=== PATIENT | female | born 1945 | race Caucasian/White ===

== ENCOUNTER 2018-03-10 10:57 | Emergency (ER) | payer MEDICARE, OTHER ==
[~2018-03-10] VITALS: Ht 160 cm; Wt 77.1 kg
[~2018-03-10 10:57] MED LIST: ALBU90OI INH; ALPR.25 PO; CARV3.125 PO; CARV6.25 PO; CHOL10002 PO; ESOM20 PO; ESTR2 PO; ESTRADIOL; LISI20 PO; LISINOPRIL; METPRE4DP PO; Norco 5-325 Ta1 EACH PO; SPACE CHAMBER1 EACH MC; TRAM50 PO; TRAMADOL; Vibramycin100 MG PO
[2018-03-10] MEDS ORDERED: LISI20 PO (11:26)
[2018-03-10] MEDS ORDERED: CARV6.25 PO (11:26)
[2018-03-10] MEDS ORDERED: ALPR.25 PO (11:27)
[2018-03-10] MEDS ORDERED: ESOM20 PO (11:27)
[2018-03-10] MEDS ORDERED: TRAM50 PO (11:27)
[2018-03-10] MEDS ORDERED: CHOL10002 PO (11:28)
[2018-03-10] MEDS ORDERED: ESTR2 PO (11:28)
[2018-03-10 12:25] LABS: BASOPHILS ABSOLUTE AUTO 0.06 K/mm3 (0.00-0.23); BASOPHILS PERCENT AUTO 1 % (0-2); EOSINOPHILS ABSOLUTE AUTO 0.15 K/mm3 (0.00-0.68); EOSINOPHILS PERCENT AUTO 2 % (0-6); Hematocrit 42.6 % (33.0-51.0); Hemoglobin 14.2 g/dL (11.5-16.0); IMMATURE GRAN ABSOLUTE AUTO 0.03 K/mm3 (0.00-0.10); IMMATURE GRAN PERCENT AUTO 1 % (0-1); LYMPHOCYTES PERCENT AUTO 28 % (21-46); MONOCYTES ABSOLUTE AUTO 0.55 K/mm3 (0.16-1.47); MONOCYTES PERCENT AUTO 9 % (4-13); Mean Corpuscular HGB 29.5 pg (26.0-34.0); Mean Corpuscular HGB Conc 33.3 g/dL (31.5-36.5); Mean Corpuscular Volume 89 fL (80-100); Mean Platelet Volume 8.9 fL (9.1-12.4); NEUTROPHILS ABSOLUTE AUTO 3.86 K/mm3 (1.96-9.15); NEUTROPHILS PERCENT AUTO 60 % (41-73); Platelet Count 249 K/mm3 (150-400); RDW Coefficient Variation 12.8 % (11.7-14.2); RDW Standard Deviation 41.5 fL (35.1-46.3); Red Blood Cell Count 4.81 M/mm3 (3.80-5.20); White Blood Cell Count 6.45 K/mm3 (4.00-11.30)
[2018-03-10 12:34] LABS: Alanine Aminotransfer (ALT/SGP 23 U/L (12-78); Albumin, Blood 3.6 g/dL (3.4-5.0); Albumin/Globulin Ratio 0.8 (0.8-1.8); Alk Phos 82 U/L (50-136); Anion Gap 6 mmol/L (6-16); Aspartate Aminotrans (AST/SGOT 16 U/L (12-37); Bilirubin, Total 0.3 mg/dL (0.1-1.0); Blood Urea Nitrogen 15 mg/dL (8-24); Bun/Creatinine Ratio 20.9 (12.0-20.0); CO2, Blood 28 mmol/L (21-32); Calcium, Blood 8.9 mg/dL (8.5-10.1); Chloride, Blood 106 mmol/L (98-108); Creatinine, Blood 0.72 mg/dL (0.40-1.00); Globulin, Blood 4.4 g/dL (2.2-4.0); Glomerular Filtration Rate >60 (60-); Glucose, Blood 86 mg/dL (70-99); Magnesium, Blood 2.1 mg/dL (1.6-2.4); Potassium, Blood 3.9 mmol/L (3.5-5.5); Sodium, Blood 140 mmol/L (136-145); Troponin I <0.015 ng/mL (0.000-0.040)
== END 2018-03-10 13:56 | disposition home or self-care (01) ==
LOC: ER 10:57
PROVIDERS: Emergency Medicine
DX: R00.2 Palpitations (principal); I10 Essential (primary) hypertension; Z87.891 Personal history of nicotine dependence; Z88.0 Allergy status to penicillin; Z88.2 Allergy status to sulfonamides; Z88.8 Allergy status to other drugs, medicaments and biological substances; Z79.899 Other long term (current) drug therapy
CPT/HCPCS: 36415; 80053; 83735; 84443; 84484; 85025; 93005; 93010; 99284

== ENCOUNTER 2018-04-13 08:45 | Emergency (ER) | payer MEDICARE, OTHER ==
[~2018-04-13] VITALS: Ht 160 cm; Wt 74.8 kg
[2018-04-13 10:26] LABS: BASOPHILS ABSOLUTE AUTO 0.03 K/mm3 (0.00-0.23); BASOPHILS PERCENT AUTO 1 % (0-2); EOSINOPHILS ABSOLUTE AUTO 0.09 K/mm3 (0.00-0.68); EOSINOPHILS PERCENT AUTO 1 % (0-6); Hematocrit 42.8 % (33.0-51.0); Hemoglobin 14.3 g/dL (11.5-16.0); IMMATURE GRAN ABSOLUTE AUTO 0.06 K/mm3 (0.00-0.10); IMMATURE GRAN PERCENT AUTO 1 % (0-1); LYMPHOCYTES ABSOLUTE AUTO 1.76 K/mm3 (0.84-5.20); LYMPHOCYTES PERCENT AUTO 28 % (21-46); MONOCYTES PERCENT AUTO 8 % (4-13); Mean Corpuscular HGB 29.1 pg (26.0-34.0); Mean Corpuscular HGB Conc 33.4 g/dL (31.5-36.5); Mean Corpuscular Volume 87 fL (80-100); Mean Platelet Volume 8.9 fL (9.1-12.4); NEUTROPHILS ABSOLUTE AUTO 3.78 K/mm3 (1.96-9.15); NEUTROPHILS PERCENT AUTO 61 % (41-73); Platelet Count 261 K/mm3 (150-400); RDW Coefficient Variation 12.8 % (11.7-14.2); RDW Standard Deviation 40.6 fL (35.1-46.3); Red Blood Cell Count 4.91 M/mm3 (3.80-5.20); White Blood Cell Count 6.22 K/mm3 (4.00-11.30)
[2018-04-13 10:34] LABS: Anion Gap 9 mmol/L (6-16); Blood Urea Nitrogen 21 mg/dL (8-24); Bun/Creatinine Ratio 28.1 (12.0-20.0); CO2, Blood 23 mmol/L (21-32); Calcium, Blood 8.6 mg/dL (8.5-10.1); Chloride, Blood 109 mmol/L (98-108); Creatinine, Blood 0.75 mg/dL (0.40-1.00); Glomerular Filtration Rate >60 (60-); Glucose, Blood 102 mg/dL (70-99); Magnesium, Blood 2.1 mg/dL (1.6-2.4); Potassium, Blood 4.1 mmol/L (3.5-5.5); Sodium, Blood 141 mmol/L (136-145)
== END 2018-04-13 12:45 | disposition home or self-care (01) ==
LOC: ER 08:45
PROVIDERS: Emergency Medicine
DX: I48.0 Paroxysmal atrial fibrillation (principal); I10 Essential (primary) hypertension; Z88.0 Allergy status to penicillin; Z88.2 Allergy status to sulfonamides; Z88.8 Allergy status to other drugs, medicaments and biological substances; Z79.899 Other long term (current) drug therapy; Z87.891 Personal history of nicotine dependence
CPT/HCPCS: 36415; 71046; 80048; 83735; 85025; 93005; 93010; 96361; 96374; 99283; J3490; J7030

== ENCOUNTER 2019-08-15 08:09 | Day surgery (SDC) | payer MEDICARE, OTHER ==
[~2019-08-15 08:09] MED LIST changes: +Aspir 8181 MG; +CARV3.125; +DICLO GEL 1%-X1 EACH; +Estradiol0.5 MG PO; +LISI5 PO; +Nexium40 MG; +Zantac150 MG
[2019-09-06] MEDS ORDERED: AMLO10 PO (13:05)
[2019-09-06] MEDS ORDERED: BUPR100ER PO (13:06)
[2019-09-06] MEDS ORDERED: THERA-D2000 UNIT PO (13:07)
[2019-09-06] MEDS ORDERED: Advil Migraine200 MG PO (13:09)
[2019-09-06] MEDS ORDERED: [UNRECOGNIZED DRUG - OTHER] PO (13:12)
[2019-09-06] MEDS ORDERED: OMEGA XL PO (13:13)
[2019-09-06] MEDS ORDERED: Hydrocodone-Ap1 EA23 PO (13:15)
== END 2019-08-15 22:59 | disposition home or self-care (01) ==
LOC: MOI US 08:09
DX: D24.2 Benign neoplasm of left breast (principal)
CPT/HCPCS: 19083; 77065; 88305; 88342; A4648

== ENCOUNTER 2019-09-12 07:10 | Day surgery (SDC) | payer MEDICARE, OTHER ==
[~2019-09-12 07:10] MED LIST changes: +AMLO10 PO; +Advil Migraine200 MG PO; +BUPR100ER PO; +Hydrocodone-Ap1 EA23 PO; +OMEGA XL PO; +THERA-D2000 UNIT PO; +[UNRECOGNIZED DRUG - OTHER] PO
== END 2019-09-12 23:27 | disposition home or self-care (01) ==
LOC: MOI US 07:10
DX: D24.2 Benign neoplasm of left breast (principal)
CPT/HCPCS: 19285; 77065

== ENCOUNTER 2019-10-10 07:20 | Day surgery (SDC) | payer MEDICARE, OTHER ==
[~2019-10-10] VITALS: Ht 162.6 cm; Wt 76.3 kg
--- NOTE | 2019-10-10 08:35 | NUR ---
Ambulatory in Day Surgery History, Chart, Medications and Allergies reviewed before start of procedure. Lungs clear T/O to Auscultation. Patient confirms NPO status and agrees with scheduled surgery. Patient States Post-Procedure ride home has been arranged.
--- NOTE | 2019-10-10 09:25 | NUR ---
10/10/19 0925 Pelon Livingston EPI WAS ADDED TO THE BUPIVICAINE TO CREATE A SOLUTION OF 0.5% WITH EPI 1:200,000
--- NOTE | 2019-10-10 11:14 | NUR ---
"DAY SURGERY RN | DISCHARGE VSS. A/O. DENIES PAIN, NAUSEA, AND DIZZINESS. SITE C/D/I. DISCHARGE INSTRUCTIONS AND RX GIVEN TO PATIENT. NO ISSUES. TAKEN TO FRONT ENTRANCE BY THIS RN. FRIEND IS RIDE HOME."
== END 2019-10-10 22:43 | disposition home or self-care (01) ==
LOC: ORSCMMR 07:20
PROVIDERS: Surgery
PROC: 0HBU0ZX Excision of Left Breast, Open Approach, Diagnostic (ICD-10-PCS; principal; 2019-10-10 09:00)
DX: D24.2 Benign neoplasm of left breast (principal); I10 Essential (primary) hypertension; G47.33 Obstructive sleep apnea (adult) (pediatric); Z79.82 Long term (current) use of aspirin; Z79.899 Other long term (current) drug therapy
CPT/HCPCS: 76098; 88307; J0171; J0690; J1100; J2250; J2370; J2405; J2704; J3010; J7120

== ENCOUNTER → 2020-11-13 | Outpatient (CLI) | payer MEDICARE, OTHER ==
[~2020-11-13] MED LIST changes: +Coumadin5 MG PO
[2020-11-13 16:20] LABS: Appearance, Urine Clear (Clear); Bilirubin, Urine Neg (Neg); Blood, Urine Neg (Neg); Color, Urine Yellow (P-Yellow); Glucose Qualitative, Urine Neg (Neg); Ketones, Urine Neg (Neg); Leukocyte Esterase, Urine 2+ (Neg); Nitrite, Urine Neg (Neg); Protein, Urine Neg (Neg); Specific Gravity, Urine 1.015 (1.003-1.022); Urobilinogen, Urine NORM (Normal)
[2020-11-13 16:29] LABS: Bacteria Mod /hpf; Red Blood Cells, Urine 0-2 /hpf (0-2); Squamous Epithelial Cells Few /hpf (Few)
== END | disposition home or self-care (01) ==
LOC: LAB 11:17 → LAB SHORT 11:17
PROVIDERS: Internal Medicine
DX: R35.0 Frequency of micturition (principal)
CPT/HCPCS: 81001; 87086

== ENCOUNTER → 2020-12-04 | Outpatient (CLI) | payer MEDICARE, OTHER ==
[2020-12-04 16:22] LABS: BASOPHILS ABSOLUTE AUTO 0.06 K/mm3 (0.00-0.23); BASOPHILS PERCENT AUTO 1 % (0-2); EOSINOPHILS ABSOLUTE AUTO 0.08 K/mm3 (0.00-0.68); EOSINOPHILS PERCENT AUTO 1 % (0-6); Hemoglobin 13.6 g/dL (11.5-16.0); IMMATURE GRAN ABSOLUTE AUTO 0.12 K/mm3 (0.00-0.10); IMMATURE GRAN PERCENT AUTO 2 % (0-1); LYMPHOCYTES ABSOLUTE AUTO 1.93 K/mm3 (0.84-5.20); LYMPHOCYTES PERCENT AUTO 31 % (21-46); MONOCYTES ABSOLUTE AUTO 0.66 K/mm3 (0.16-1.47); MONOCYTES PERCENT AUTO 11 % (4-13); Mean Corpuscular HGB 28.3 pg (26.0-34.0); Mean Corpuscular HGB Conc 31.6 g/dL (31.5-36.5); Mean Corpuscular Volume 89 fL (80-100); Mean Platelet Volume 8.5 fL (9.1-12.4); NEUTROPHILS ABSOLUTE AUTO 3.44 K/mm3 (1.96-9.15); NEUTROPHILS PERCENT AUTO 55 % (41-73); Platelet Count 276 K/mm3 (150-400); RDW Coefficient Variation 13.4 % (11.7-14.2); RDW Standard Deviation 43.9 fL (35.1-46.3); Red Blood Cell Count 4.81 M/mm3 (3.80-5.20); White Blood Cell Count 6.29 K/mm3 (4.00-11.30)
[2020-12-04 17:06] LABS: Alanine Aminotransfer (ALT/SGP 22 U/L (12-78); Albumin, Blood 3.6 g/dL (3.4-5.0); Albumin/Globulin Ratio 0.9 (0.8-1.8); Alk Phos 101 U/L (50-136); Anion Gap 9 mmol/L (6-16); Aspartate Aminotrans (AST/SGOT 17 U/L (12-37); Bilirubin, Total 0.4 mg/dL (0.1-1.0); Blood Urea Nitrogen 30 mg/dL (8-24); CHOL/HDL RATIO 3.8; CO2, Blood 25 mmol/L (21-32); Calcium, Blood 9.1 mg/dL (8.5-10.1); Chloride, Blood 106 mmol/L (98-108); Cholesterol 238 mg/dL (50-200); Globulin, Blood 3.9 g/dL (2.2-4.0); Glomerular Filtration Rate 57 (60-); Glucose, Blood 79 mg/dL (70-99); HDL Cholesterol 63 mg/dL (>39); LDL/HDL RATIO 2.4; Low Density Lipoprotein Chol 150 mg/dL (0-110); Potassium, Blood 4.3 mmol/L (3.5-5.5); Sodium, Blood 140 mmol/L (136-145); Total Protein, Blood 7.5 g/dL (6.4-8.2); Triglycerides 126 mg/dL (30-160); Very Low Density Lipoprot Chol 25 mg/dL (6-32)
== END | disposition home or self-care (01) ==
LOC: LAB 13:25 → LAB SHORT 13:25
PROVIDERS: Family Medicine
DX: Z13.29 Encounter for screening for other suspected endocrine disorder (principal); E78.5 Hyperlipidemia, unspecified; I10 Essential (primary) hypertension
CPT/HCPCS: 80053; 80061; 84443; 85025

== ENCOUNTER → 2021-01-01 | Outpatient (CLI) | payer MEDICARE, OTHER | LOC: LAB 17:49 → LAB SHORT 17:49 | DX: M54.5 Low back pain (principal) | CPT/HCPCS: 87086 ==

== ENCOUNTER → 2022-12-24 | Outpatient (CLI) | payer MEDICARE, OTHER ==
[2022-12-25 14:25] LABS: Candida species (DNA Probe) Negative (NEGATIVE); G. vaginalis (DNA Probe) Negative (NEGATIVE); T. vaginalis (DNA Probe) Negative (NEGATIVE)
== END | disposition home or self-care (01) ==
LOC: LAB SHORT 16:00 → LAB 16:00
PROVIDERS: Internal Medicine Nephrology
DX: L29.3 Anogenital pruritus, unspecified (principal)
CPT/HCPCS: 87480; 87510; 87660

== ENCOUNTER → 2023-01-28 | Outpatient (CLI) | payer MEDICARE, OTHER ==
[2023-01-29 08:56] LABS: Candida species (DNA Probe) Negative (NEGATIVE); G. vaginalis (DNA Probe) Positive (NEGATIVE); T. vaginalis (DNA Probe) Negative (NEGATIVE)
== END | disposition home or self-care (01) ==
LOC: LAB 12:00 → LAB SHORT 12:00
PROVIDERS: Family Medicine
DX: R30.0 Dysuria (principal); N89.8 Other specified noninflammatory disorders of vagina
CPT/HCPCS: 87086; 87480; 87510; 87660

== ENCOUNTER → 2023-09-09 | Outpatient (CLI) | payer MEDICARE, OTHER ==
[2023-09-09 19:02] LABS: Bun/Creatinine Ratio 24.9 (12.0-20.0); Calcium, Blood 9.4 mg/dL (8.5-10.1); Creatinine, Blood 0.92 mg/dL (0.40-1.00); Thyroid Stimulating Hormone 1.28 uIU/mL (0.360-4.800)
== END ==
LOC: LAB 16:42 → LAB SHORT 16:42
PROVIDERS: Student in an Organized Health Care Education/Training Program
DX: R00.2 Palpitations (principal)
CPT/HCPCS: 80048; 84443

== ENCOUNTER → 2023-09-21 | Outpatient (CLI) | payer MEDICARE, OTHER ==
[2023-09-25 10:08] LABS: 5-HIAA, URINE 2.5 mg/L (Undefined)
== END ==
LOC: LAB 19:07 → LAB SHORT 19:07
PROVIDERS: Student in an Organized Health Care Education/Training Program
DX: R00.2 Palpitations (principal)
CPT/HCPCS: 82570; 83497

== ENCOUNTER → 2023-11-09 | Outpatient (CLI) | payer MEDICARE, OTHER ==
[2023-11-13 17:08] LABS: METANEPHRINE 0.15 nmol/L (0.00-0.49); NORMETANEPHRINE 0.28 nmol/L (0.00-0.89)
== END ==
LOC: LAB 19:20 → LAB SHORT 19:20
PROVIDERS: Student in an Organized Health Care Education/Training Program
DX: I10 Essential (primary) hypertension (principal)
CPT/HCPCS: 83835

== ENCOUNTER → 2024-01-04 | Outpatient (CLI) | payer MEDICARE, OTHER ==
[2024-01-04 13:14] LABS: Source, Urine Clean Catch
[2024-01-04 17:57] LABS: Appearance, Urine Clear (Clear); Bilirubin, Urine Neg (Neg); Blood, Urine 1+ (Neg); Color, Urine Yellow (P-Yellow); Glucose Qualitative, Urine Neg (Neg); Ketones, Urine Neg (Neg); Leukocyte Esterase, Urine 1+ (Neg); Nitrite, Urine Neg (Neg); Protein, Urine Neg (Neg); Urobilinogen, Urine NORM (Normal)
[2024-01-04 18:04] LABS: Bacteria Few /hpf; Red Blood Cells, Urine 0-2 /hpf (0-2); Squamous Epithelial Cells Few /hpf (Few)
== END ==
LOC: LAB SHORT 13:12 → LAB 13:12
PROVIDERS: Student in an Organized Health Care Education/Training Program
DX: R31.21 Asymptomatic microscopic hematuria (principal)
CPT/HCPCS: 81001

== ENCOUNTER 2024-04-08 05:20 | Day surgery (SDC) | payer MEDICARE, OTHER | END 2024-04-08 22:46 | disposition home or self-care (01) | LOC: WOUND 05:20 | DX: L89.893 Pressure ulcer of other site, stage 3 (principal); I73.9 Peripheral vascular disease, unspecified; I87.2 Venous insufficiency (chronic) (peripheral); Z88.2 Allergy status to sulfonamides; Z87.891 Personal history of nicotine dependence ==

== ENCOUNTER 2024-05-21 12:34 | Emergency (ER) | payer MEDICARE, OTHER ==
[~2024-05-21] VITALS: Ht 162.6 cm; Wt 75.3 kg
[~2024-05-21 12:34] MED LIST changes: +Amlodipine Bes2.5 MG; +Carvedilol12.5 MG PO; +HYDR1TAB94 PO; +OMEP20ER PO
[2024-05-21 13:22] LABS: BASOPHILS ABSOLUTE AUTO 0.06 K/mm3 (0.00-0.23); BASOPHILS PERCENT AUTO 1 % (0-2); EOSINOPHILS ABSOLUTE AUTO 0.17 K/mm3 (0.00-0.68); EOSINOPHILS PERCENT AUTO 3 % (0-6); Hematocrit 38.6 % (33.0-51.0); IMMATURE GRAN ABSOLUTE AUTO 0.09 K/mm3 (0.00-0.10); IMMATURE GRAN PERCENT AUTO 1 % (0-1); LYMPHOCYTES ABSOLUTE AUTO 2.08 K/mm3 (0.84-5.20); LYMPHOCYTES PERCENT AUTO 30 % (21-46); MONOCYTES ABSOLUTE AUTO 0.64 K/mm3 (0.16-1.47); MONOCYTES PERCENT AUTO 9 % (4-13); Mean Corpuscular HGB 29.5 pg (26.0-34.0); Mean Corpuscular HGB Conc 33.7 g/dL (31.5-36.5); Mean Corpuscular Volume 88 fL (80-100); Mean Platelet Volume 8.7 fL (9.1-12.4); NEUTROPHILS ABSOLUTE AUTO 3.86 K/mm3 (1.96-9.15); NEUTROPHILS PERCENT AUTO 56 % (41-73); Platelet Count 269 K/mm3 (150-400); RDW Coefficient Variation 13.4 % (11.7-14.2); RDW Standard Deviation 43.3 fL (35.1-46.3)
[2024-05-21 13:40] LABS: Albumin, Blood 3.8 g/dL (3.4-5.0); Bilirubin, Total 0.3 mg/dL (0.1-1.0); Bun/Creatinine Ratio 49.3 (12.0-20.0); Calcium, Blood 9.1 mg/dL (8.5-10.1); Creatinine, Blood 0.97 mg/dL (0.40-1.00); Potassium, Blood 4.6 mmol/L (3.5-5.5); Total Protein, Blood 7.8 g/dL (6.4-8.2)
[2024-05-21 15:01] VITALS: BP 171/62
[2024-05-21] MEDS ORDERED: Potassium Chloride 10 Meq Tablet SA PO ONE (15:35)
== END 2024-05-21 16:45 | disposition home or self-care (01) ==
LOC: ER 12:34
PROVIDERS: Emergency Medicine
DX: R25.2 Cramp and spasm (principal); T50.2X5A Adverse effect of carbonic-anhydrase inhibitors, benzothiadiazides and other diuretics, initial encounter; I10 Essential (primary) hypertension; Z87.891 Personal history of nicotine dependence; Z79.899 Other long term (current) drug therapy; Z88.1 Allergy status to other antibiotic agents; Z88.2 Allergy status to sulfonamides; Z88.8 Allergy status to other drugs, medicaments and biological substances
CPT/HCPCS: 80053; 83735; 85025; 93005; 93010; 99284-25; A9270

== ENCOUNTER 2024-05-26 03:10 | Day surgery (SDC) | payer MEDICARE, OTHER | END 2024-05-26 22:56 | disposition home or self-care (01) | LOC: WOUND 03:10 | DX: L89.93 Pressure ulcer of unspecified site, stage 3 (principal); I73.9 Peripheral vascular disease, unspecified | CPT/HCPCS: G0463 ==

== ENCOUNTER 2024-06-09 02:38 | Day surgery (SDC) | payer MEDICARE, OTHER | END 2024-06-09 23:20 | disposition home or self-care (01) | LOC: WOUND 02:38 | DX: L89.893 Pressure ulcer of other site, stage 3 (principal); I73.9 Peripheral vascular disease, unspecified; I87.2 Venous insufficiency (chronic) (peripheral) | CPT/HCPCS: G0463 ==

== ENCOUNTER 2024-10-25 01:04 | Day surgery (SDC) | payer MEDICARE, OTHER | END 2024-10-25 23:36 | disposition home or self-care (01) | LOC: WOUND 01:04 | DX: L89.893 Pressure ulcer of other site, stage 3 (principal) | CPT/HCPCS: G0463 ==

== ENCOUNTER 2024-11-03 10:19 | Day surgery (SDC) | payer MEDICARE, OTHER | END 2024-11-03 23:00 | disposition home or self-care (01) | LOC: WOUND 10:19 | DX: L89.893 Pressure ulcer of other site, stage 3 (principal) | CPT/HCPCS: G0463 ==

== ENCOUNTER 2024-11-10 01:55 | Day surgery (SDC) | payer MEDICARE, OTHER | END 2024-11-10 23:00 | disposition home or self-care (01) | LOC: WOUND 01:55 | DX: L89.893 Pressure ulcer of other site, stage 3 (principal) | CPT/HCPCS: G0463 ==

== ENCOUNTER 2024-11-17 05:37 | Day surgery (SDC) | payer MEDICARE, OTHER | END 2024-11-17 23:00 | disposition home or self-care (01) | LOC: WOUND 05:37 | DX: L89.893 Pressure ulcer of other site, stage 3 (principal) | CPT/HCPCS: G0463 ==

== ENCOUNTER 2024-12-01 05:58 | Day surgery (SDC) | payer MEDICARE, OTHER | END 2024-12-01 23:00 | disposition home or self-care (01) | LOC: WOUND 05:58 | DX: L89.893 Pressure ulcer of other site, stage 3 (principal) | CPT/HCPCS: G0463 ==

== ENCOUNTER 2024-12-08 04:43 | Day surgery (SDC) | payer MEDICARE, OTHER | END 2024-12-08 23:00 | disposition home or self-care (01) | LOC: WOUND 04:43 | DX: L89.893 Pressure ulcer of other site, stage 3 (principal) | CPT/HCPCS: G0463 ==

== ENCOUNTER 2024-12-15 02:03 | Day surgery (SDC) | payer MEDICARE, OTHER | END 2024-12-15 23:00 | disposition home or self-care (01) | LOC: WOUND 02:03 | DX: L89.893 Pressure ulcer of other site, stage 3 (principal) | CPT/HCPCS: G0463 ==

== ENCOUNTER → 2024-12-22 | Day surgery (SDC) | payer MEDICARE, OTHER | LOC: WOUND 05:01 | DX: L89.893 Pressure ulcer of other site, stage 3 (principal) ==

== ENCOUNTER 2024-12-29 01:40 | Day surgery (SDC) | payer MEDICARE, OTHER | END 2024-12-29 23:00 | disposition home or self-care (01) | LOC: WOUND 01:40 | DX: L89.893 Pressure ulcer of other site, stage 3 (principal) | CPT/HCPCS: G0463 ==

== ENCOUNTER 2025-01-05 04:16 | Day surgery (SDC) | payer MEDICARE, OTHER | END 2025-01-05 23:00 | disposition home or self-care (01) | LOC: WOUND 04:16 | DX: L89.893 Pressure ulcer of other site, stage 3 (principal) | CPT/HCPCS: G0463 ==